=== PATIENT | male | born 2000 | race Two or more races ===

== ENCOUNTER 2024-06-30 17:17 | Emergency (ER) | payer OTHER ==
[~2024-06-30] VITALS: Ht 182.9 cm; Wt 90.0 kg
[2024-06-30] MEDS: DexAMETHasone SOD PHOS 10MG/1ML VIAL INJ IM ONE (17:32)
[2024-06-30 17:35] VITALS: BP 130/91; PULSE 70; TEMP 98.7
[2024-06-30] MEDS: ALBUTEROL SULF 2.5 MG/0.5ML(0.5%) NEB SOLN NEB ONE (17:48)
[2024-06-30] MEDS: IPRATROPIUM BROM 0.5 MG/2.5ML INH SOL NEB ONE (17:48)
[2024-06-30 17:49] VITALS: RESP 18; O2SAT 96
[2024-06-30] MEDS ORDERED: ALBU108A5 IN (19:13)
== END 2024-06-30 20:19 | disposition home or self-care (01) ==
LOC: ER 17:21
DX: J45.901 Unspecified asthma with (acute) exacerbation (principal); B97.89 Other viral agents as the cause of diseases classified elsewhere; J39.8 Other specified diseases of upper respiratory tract
CPT/HCPCS: 71046; 94640; 96372; 99283; J1100